=== PATIENT | male | born 1955 | race African-American/Black ===

== ENCOUNTER 2019-06-03 01:19 | Emergency (ER) | payer OTHER, SELFPAY ==
--- NOTE | ~2019-06-03 | CT_ITS ---
EXAMINATION: CT chest wo con DATE: 06/03/2019 03:21 INDICATION: Altered mental status and abnormal chest x-ray TECHNIQUE: Computed tomography (CT) of the chest was performed without intravenous contrast. The dose -length product (DLP) was 159.72 mGy-cm. Automated exposure control and iterative reconstruction tech nique were employed. COMPARISON: None FINDINGS: Severe cardiomegaly is again noted. There are minimal perihilar and bibasilar airspace opac ities. Anasarca is noted. There are small pleural effusions. No pneumothorax is identified. No defini te thoracic lymphadenopathy is identified. There are partially imaged surgical changes in the cervica l spine. There is diffuse sclerosis amongst the visualized osseous structures which could reflect und erlying metabolic abnormality. IMPRESSION: 1. Severe cardiomegaly. 2. Minimal airspace opacities could reflect pulmonary edema versus atelectasis versus pneumonia. Reviewed, dictated and finalized at location A.
--- NOTE | ~2019-06-03 | XR_ITS ---
EXAMINATION: XR chest 2V DATE: 06/03/2019 02:26 INDICATION: Altered mental status TECHNIQUE: AP and lateral views of the chest are obtained. COMPARISON: 02/18/2019 FINDINGS: There is unchanged severe cardiomegaly. There are patchy bilateral airspace opacities. No d efinite pleural effusion or pneumothorax is identified. There is diffuse sclerosis of the vertebral b odies with compression deformities in the midthoracic spine. Advanced osteoarthritis is noted in the right glenohumeral joint. There are partially imaged changes of cervical spinal fusion. IMPRESSION: 1. Stable cardiomegaly. 2. Patchy bilateral airspace opacities, consistent with atelectasis versus pneumonia versus pulmonary edema. Reviewed, dictated and finalized at location A. IMPRESSION: 1. Stable cardiomegaly. 2. Patchy bilateral airspace opacities, consistent with atelectasis versus pneu monia versus pulmonary edema.
--- NOTE | ~2019-06-03 | CT_ITS ---
EXAMINATION: CT brain wo con INDICATION: Altered mental status COMPARISON: None TECHNIQUE: Standard unenhanced head CT. The dose-length product (DLP) was 605.33 mGy-cm. The mA was a djusted according to patient size. Iterative reconstruction technique was employed. FINDINGS: There is no acute intraparenchymal hemorrhage. No evidence of mass lesion. No evidence of a cute infarction. There is mild periventricular and subcortical hypodensity probably related to small vessel ischemic disease. There are prominent calcifications of the bilateral basal ganglia. There is mild prominence of the sulci and ventricles related to cerebral atrophy. Intracranial calcified cereb ral atherosclerosis is noted. There are no extra-axial collections. There is no mass effect or midlin e shift. Changes in the globes are likely from ocular lens surgery. The visualized sinuses and masto id air cells are well aerated. Subtle erosive changes are noted in the tip of the odontoid as well as in the right lateral mass of C1 which could reflect underlying rheumatoid arthritis. Recommend clini anthony correlation. IMPRESSION: 1. No acute intracranial abnormality. 2. Age related findings. Reviewed, dictated and finalized at location A.
--- NOTE | 2019-06-03 01:31 | ED.AMS ---
HPI - Altered Mental Status General Chief Complaint: Altered Mental Status Stated Complaint: ams Time Seen by Provider: 06/03/19 01:30 Source: EMS, RN notes reviewed and old records reviewed Mode of arrival: EMS Limitations: clinical condition History of Present Illness HPI narrative: A 63 y/o male presents to the ED via EMS from his [facility] d/t AMS beginning at roughly 2.5 hours ago. Per EMS, report that the [place] nurses stated that the pt is typically A&Ox3 and is able to remember their names, but that tonight around 11 PM the pt became altered and was unable to remember any of their names. The pt is having difficulty articulating why he is in the ED. He denies any ROGERS, CP, ABD pain, SOB, N/V/D, fevers, chills, or cough. MD complaint: altered mental status Onset (ago): hour(s) (2.5) Time: 23:00 Timing confirmed by: caregiver Associated symptoms: denies other symptoms Related Data Home Medications Medication Instructions Recorded Confirmed [facility] Renal 2 Jasen 0.09 ea PO DAILY 02/19/19 02/19/19 amlodipine 10 mg PO DAILY 02/19/19 02/19/19 ergocalciferol (vitamin D2) 50,000 unit PO WEEKLY 02/19/19 02/19/19 hydrocodone-acetaminophen [Lorcet 1 tablet PO Q6H PRN 02/19/19 02/19/19 (hydrocodone)] sevelamer carbonate 800 mg PO TIDWM 02/19/19 02/19/19 acetaminophen [Tylenol] 650 mg PO ONCE PRN 06/03/19 baclofen 10 mg PO TID 06/03/19 brimonidine 1 drp OPHTHALMIC (EYE) Q8H 06/03/19 cinacalcet 30 mg PO BID 06/03/19 dorzolamide 1 drp OPHTHALMIC (EYE) BID 06/03/19 labetalol 100 mg PO Q12H 06/03/19 timolol 1 drp OPHTHALMIC (EYE) BID 06/03/19 Allergies Allergy/AdvReac Type Severity Reaction Status Date / Time No Known Allergies Allergy Verified 02/18/19 23:43 Review of Systems Review of Systems: All systems reviewed & are unremarkable except as noted in HPI and below Constitutional: Constitutional: Denies chills and Denies fever(s) Cardiovascular: Cardiovascular: Denies chest pain Respiratory: Respiratory: Denies cough and Denies dyspnea Gastrointestinal: Gastrointestinal: Denies abdominal pain, Denies diarrhea, Denies nausea and Denies vomiting Neurologic: Denies headache(s) and Reports other (Altered mental statutes) [facility] Past Medical History Medical History Cataracts, bilateral Cyst on his buttocks Decubitus ulcer of sacral region, stage 1 Dialysis patient Erythropoietin deficiency anemia Essential (primary) hypertension Glaucoma H/O: HTN (hypertension) Hemorrhoids Hypotension Renal insufficiency PETER (renal osteodystrophy) Surgical History Surgical History History of cervical spinal surgery Social History Social History Smoking packs per day: 0.5 Smoking cigarettes per day: 10.0 Years smoked: 50 Smoking pack-years: 25.00 Smoking status: Light tobacco smoker Tobacco type: cigarettes Additional smoking assessment comments: SMOKES MARIJUANA FOR PAIN CONTROL Alcohol intake: never Substance use: current Substance use type: marijuana Gender identity (if verbalized by the patient): Male Spiritual care concerns: No Agree to blood products: Yes Comments Parts Counter Associate: Dr. Alvarado. Exam Const: General: cooperative, no acute distress, alert and ill appearing chronically Nutritional Appearance: thin Orientation/consciousness: oriented to person and oriented to place Limitations: altered mental status HENMT: Mouth: Yes lip normal and Yes moist mucous membranes Resp: Effort & Inspection: normal respiratory effort Auscultation: clear to auscultation bilaterally Cardio: Rate: regular rate Rhythm: regular rhythm Heart sounds: Murmur heart sound present systolic (slight) GI: GI Palp: Yes Soft to palpation and No Tenderness to palpation present (GI) Auscultation: normal bowel sounds Skin: General skin exam: normal color Neuro:
[2019-06-03 01:33] VITALS: BP 168/70; PULSE 63; RESP 14; TEMP 36.6; O2SAT 100
--- NOTE | 2019-06-03 01:38 | ECG_ITS ---
Measurements Intervals [place] Rate: 72 P: 60 TN: 254 QRS: 33 QRSD: 113 T: 169 QT: 487 QTc: 535 Interpretive Statements SINUS RHYTHM WITH FIRST DEGREE AV BLOCK INTRAVENTRICULAR CONDUCTION DELAY ST-T WAVE ABNORMALITY IN ANTEROLAT/LAT LEADS- CONSIDER ISCHEMIA ABNORMAL ECG Electronically Signed On 06-03-2019 7:59:51 CDT by Catrachito Jones D.O.
[2019-06-03 02:33] LABS: Alanine Aminotransferase 14 U/L (4-50); Albumin Level 3.8 g/dL (3.5-5.1); Alkaline Phosphatase 125 U/L (38-126); Aspartate Amino Transferase 22 U/L (17-59); Bilirubin,Total 0.7 mg/dL (0.2-1.3); Blood Urea Nitrogen 45 mg/dL (9-20); Calcium 9.3 mg/dL (8.4-10.2); Carbon Dioxide 27 mmol/L (22-30); Chloride 107 mmol/L (98-107); Estimated CRCL calculation 8 ml/min; Estimated Glomerular Filt Rate 10; Glucose 89 mg/dL (75-110); Potassium 4.3 mmol/L (3.4-5.0); Sodium 141 mmol/L (137-145)
[2019-06-03 02:43] LABS: Basophils Absolute Auto 0.1 K/mm3 (0.0-0.1); Basophils Percent Auto 1.6 % (0.2-1.2); Eosinophils Absolute Auto 0.3 K/mm3 (0-0.3); Eosinophils Percent Auto 4.7 % (0-4.4); Hematocrit 33.4 % (42.0-52.0); Hemoglobin 10.1 g/dL (14.0-18.0); Immature Granulocyte Absolute 0.01 K/mm3 (0.00-0.031); Immature Granulocyte Percent A 0.2 % (0-0.5); Lymphocytes Percent Auto 14.4 % (18.3-44.2); Mean Corpuscular HGB Conc 30.2 g/dl (32-36); Mean Corpuscular Hemoglobin 30.1 pg (26-34); Mean Corpuscular Volume 99.7 fl (80-100); Mean Platelet Volume 9.9 fl (7.4-10.4); Monocytes Absolute Auto 0.5 K/mm3 (0.1-0.6); Monocytes Percent Auto 8.6 % (2.6-8.5); Neutrophils Absolute Auto 3.9 K/mm3 (1.3-6.7); Neutrophils Percent Auto 70.5 % (45.5-73.1); Platelet Count Result 245 k/mm3 (150-375); Red Blood Count 3.35 M/mm3 (4.6-6.20); White Blood Count 5.6 K/mm3 (4.5-10.0)
[2019-06-03 03:28] VITALS: BP 172/79; PULSE 70; RESP 20; O2SAT 97
--- NOTE | 2019-06-03 03:29 | PC.NURSE ---
aware pt states he does not make urine
--- NOTE | 2019-06-03 04:59 | PC.NURSE ---
AWARE PT DOES NOT MAKE URINE
--- NOTE | 2019-06-03 05:01 | PC.NURSE ---
ATTEMPT TO CALL REPORT TO [facility] , NO ONE ANSWERED PHONE ON [address]
[2019-06-03 05:05] VITALS: BP 176/80; PULSE 62; RESP 18; O2SAT 99
--- NOTE | 2019-06-03 05:15 | PC.NURSE ---
ATTEMPT TO CALL REPORT TO [facility]- NO ONE ANSWER THE PHONE
[2019-06-03 05:26] VITALS: BP 176/80; PULSE 67; RESP 21; O2SAT 98
[2019-06-03 05:37] VITALS: TEMP 37.1
== END 2019-06-03 05:39 ==
PROVIDERS: Emergency Provider Emergency Medicine
DX: R40.0 Somnolence (principal); F17.210 Nicotine dependence, cigarettes, uncomplicated; H26.9 Unspecified cataract; Z99.2 Dependence on renal dialysis; N28.9 Disorder of kidney and ureter, unspecified; H40.9 Unspecified glaucoma; I10 Essential (primary) hypertension; I44.0 Atrioventricular block, first degree; I45.9 Conduction disorder, unspecified; R94.31 Abnormal electrocardiogram [ECG] [EKG]; I51.7 Cardiomegaly; R91.8 Other nonspecific abnormal finding of lung field
CPT/HCPCS: 36415; 70450; 71046; 71250; 80053; 85025; 93005; 99284

== ENCOUNTER 2019-07-02 04:00 | Inpatient (IN) | payer OTHER, SELFPAY ==
[2019-07-02] VITALS (15 sets, daily range): BP systolic 80–151; BP diastolic 54–82; PULSE 58–76; RESP 12–27; TEMP 36.6–38.4; O2SAT 3–100
--- NOTE | ~2019-07-02 | XR_ITS ---
EXAMINATION: XR chest 1V portable DATE: 07/04/2019 06:04 INDICATION: Pneumonia with pulmonary infiltrates. TECHNIQUE: frontal view of the chest was obtained. COMPARISON: Chest radiograph dated 07/03/2019 FINDINGS: No interval change accounting for slight leftward rotation of the patient in patchy bilateral airspac e opacities. Tiny left pleural effusion. No pneumothorax. Cardiomegaly. Diffuse sclerosis of the bone s and symmetric erosions of the clavicles, coracoid processes and humeral heads including the subchon dral bone all likely related to renal osteodystrophy. Partially visualized instrumented anterior and posterior spinal fusions of the cervical spine. IMPRESSION: 1. Unchanged bilateral patchy airspace disease which could represent pulmonary edema or pneumonia. 2. Tiny left pleural effusion. 3. Cardiomegaly. Reviewed, dictated and finalized at location A.
--- NOTE | ~2019-07-02 | XR_ITS ---
EXAMINATION: XR chest 1V portable DATE: 07/03/2019 05:56 INDICATION: Pneumonia. TECHNIQUE: A single frontal view of the chest was obtained. COMPARISON: Chest single view 07/02/2019 FINDINGS: There are patchy perihilar airspace opacities bilaterally. No pleural effusion or pneumotho rax. Cardiomegaly is noted. There are changes of anterior fusion procedure in cervical spine and post erior fusion procedure in cervicothoracic spine. IMPRESSION: 1. Worsened airspace opacities in the perihilar regions, consistent with pulmonary edema versus pneum onia. 2. Cardiomegaly. Reviewed, dictated and finalized at location A. IMPRESSION: 1. Worsened airspace opacities in the perihilar regions, consistent with pulmon zenaida edema versus pneumonia. 2. Cardiomegaly.
--- NOTE | ~2019-07-02 | XR_ITS ---
EXAMINATION: XR chest 1V portable INDICATION: Hypoxia TECHNIQUE: Portable AP chest at 0836 hours COMPARISON: 07/04/2019 FINDINGS: Cardiomegaly is noted. There are patchy bilateral airspace opacities which have improved. T here is no pleural effusion or pneumothorax. There are partially imaged surgical changes of the cervi anthony spine. Endovascular stent is noted in the left upper arm. IMPRESSION: 1. Improved diffuse lung disease, consistent with resolving pneumonia. 2. Stable cardiomegaly. Reviewed, dictated and finalized at location A.
--- NOTE | ~2019-07-02 | XR_ITS ---
EXAMINATION: XR chest 1V portable DATE: 07/02/2019 04:42 INDICATION: Cough. TECHNIQUE: A single frontal view of the chest was obtained. COMPARISON: Chest 2 views 06/03/2019, chest CT 06/03/2019 FINDINGS: The patient is rotated to his left. There are patchy airspace opacities in the mid and lowe r lung zones. No pleural effusion or pneumothorax. Cardiomegaly is noted. There are changes of anteri or and posterior fusion procedures in cervical spine. IMPRESSION: 1. Worsened airspace opacities in the mid and lower lung zones, consistent with pulmonary edema versu s pneumonia. 2. Cardiomegaly. Reviewed, dictated and finalized at location A. IMPRESSION: 1. Worsened airspace opacities in the mid and lower lung zones, consistent with pulmonary edema versus pneumonia. 2. Cardiomegaly.
--- NOTE | 2019-07-02 04:02 | ECG_ITS ---
Measurements Intervals [place] Rate: 73 P: 73 VT: 186 QRS: 97 QRSD: 113 T: -38 QT: 439 QTc: 486 Interpretive Statements SINUS RHYTHM INTRAVENTRICULAR CONDUCTION DELAY BORDERLINE ST-T WAVE ABNORMALITY- INF/LAT LEADS BORDERLINE ECG Electronically Signed On 07-02-2019 8:07:01 CDT by Catrachito Jones D.O.
--- NOTE | 2019-07-02 04:13 | ED.SOB ---
HPI - SOB/Dyspnea General Chief Complaint: Shortness of Breath/Dyspnea Stated Complaint: SOB/ Fever/ cough Source: RN notes reviewed History of Present Illness HPI Narrative: [facility]. Patient states that he has been feeling intermittently short of breath over the past week and symptoms worsened yesterday. States has been having a cough that is been nonproductive patient is also had a fever up to 102 at the [facility]. Per the F the patient is been having episodes of hypoxia and has been requiring oxygen at the facility wearing up to 3 L. There are several cases of positive Covid at the [facility] patient states at baseline he does not walk he is currently on dialysis on Tuesdays and Saturdays with last dialysis yesterday and Dr. Alvarado is his manager molecular Related Data Home Medications Medication Instructions Recorded Confirmed [facility] Renal 2 Jasen 0.09 ea PO DAILY 02/19/19 02/19/19 amlodipine 10 mg PO DAILY 02/19/19 02/19/19 ergocalciferol (vitamin D2) 50,000 unit PO WEEKLY 02/19/19 02/19/19 sevelamer carbonate 800 mg PO TIDWM 02/19/19 02/19/19 acetaminophen [Tylenol] 650 mg PO ONCE PRN 06/03/19 baclofen 10 mg PO TID 06/03/19 brimonidine 1 drp OPHTHALMIC (EYE) Q8H 06/03/19 cinacalcet 30 mg PO BID 06/03/19 dorzolamide 1 drp OPHTHALMIC (EYE) BID 06/03/19 labetalol 100 mg PO Q12H 06/03/19 timolol 1 drp OPHTHALMIC (EYE) BID 06/03/19 hydrocodone-acetaminophen 1 tablet PO Q6-8H 07/02/19 sennosides-docusate sodium [Senna 1 tab-cap PO DAILY 07/02/19 Plus] Allergies Allergy/AdvReac Type Severity Reaction Status Date / Time No Known Allergies Allergy Verified 07/02/19 04:13 Review of Systems Review of Systems: Narrative: Gen.: Reports fever denies chills Eyes: Denies eye pain or visual change ENT: Denies congestion Respiratory: See HPI CV: Denies chest pain or palpitations GI: Denies abdominal pain nausea, emesis or diarrhea chronic renal failure dialysis Saturdays Musculoskeletal: Denies back pain or muscle pain Neuro: Denies numbness, tingling, weakness or focal weakness Skin: Denies rash Except as documented, all other systems reviewed and negative [facility] Past Medical History Medical History Cataracts, bilateral Cyst on his buttocks Decubitus ulcer of sacral region, stage 1 Dialysis patient Erythropoietin deficiency anemia Essential (primary) hypertension Glaucoma H/O: HTN (hypertension) Hemorrhoids Hypotension Renal insufficiency PETER (renal osteodystrophy) Social History Social History Smoking packs per day: 0.5 Smoking cigarettes per day: 10.0 Years smoked: 50 Smoking pack-years: 25.00 Smoking status: Light tobacco smoker Tobacco type: cigarettes Additional smoking assessment comments: SMOKES MARIJUANA FOR PAIN CONTROL Alcohol intake: never Substance use: current Substance use type: marijuana Gender identity (if verbalized by the patient): Male Spiritual care concerns: No Agree to blood products: Yes Exam Narrative: Exam Narrative: APPEARANCE: No acute distress, nontoxic, resting in bed EYES: EOMI HEENT: Normocephalic, atraumatic, OMM RESPIRATORY: No respiratory distress coarse breath sounds throughout the bilateral lung walters, no wheezing CARDIOVASCULAR: Regular rate and rhythm without murmurs rubs or gallops. ABDOMINAL: Soft, nontender, nondistended, no rebound or guarding MUSCULOSKELETAl: No clubbing, cyanosis or edema. NEURO: Awake and alert x 3. Following commands, speech normal, no focal deficits SKIN:: Warm, dry. No rashes lesions or abrasions PSYCHIATRIC: Normal affect/mood, Course Course Emergency Course: Reviewed old records. Patient with chronically elevated troponin. Discussed with Dr. Anne presentation work-up. Agrees with admission at this time to IMU
[2019-07-02 04:37] LABS: Basophils Percent Auto 0.2 % (0.2-1.2); Hematocrit 31.9 % (42.0-52.0); Hemoglobin 10.2 g/dL (14.0-18.0); Immature Granulocyte Absolute 0.03 K/mm3 (0.00-0.031); Immature Granulocyte Percent A 0.7 % (0-0.5); Lymphocytes Absolute Auto 0.53 K/mm3 (0.9-3.2); Lymphocytes Percent Auto 13.2 % (18.3-44.2); Mean Corpuscular Hemoglobin 31.1 pg (26-34); Mean Corpuscular Volume 97.3 fl (80-100); Mean Platelet Volume 10.9 fl (7.4-10.4); Monocytes Absolute Auto 0.2 K/mm3 (0.1-0.6); Neutrophils Absolute Auto 3.3 K/mm3 (1.3-6.7); Neutrophils Percent Auto 80.9 % (45.5-73.1); Nucleated Red Blood Cells Perc 0.5 % (0.0-0.2); Platelet Count Result 182 k/mm3 (150-375); Red Blood Count 3.28 M/mm3 (4.6-6.20); Red Cell Distribution Width 14.8 % (11.5-14.5)
[2019-07-02 04:53] LABS: INR 1.4; Lactic Acid Reflex 1.5 mmol/L (0.7-2.1); Prothrombin Time 16.7 Seconds (11.1-14.7)
[2019-07-02 04:59] LABS: Alanine Aminotransferase 10 U/L (4-50); Albumin Level 3.8 g/dL (3.5-5.1); Alkaline Phosphatase 112 U/L (38-126); Aspartate Amino Transferase 26 U/L (17-59); Bilirubin,Total 0.8 mg/dL (0.2-1.3); Blood Urea Nitrogen 31 mg/dL (9-20); Calcium 8.8 mg/dL (8.4-10.2); Carbon Dioxide 20 mmol/L (22-30); Chloride 103 mmol/L (98-107); Estimated Glomerular Filt Rate 14; Glucose 86 mg/dL (75-110); Potassium 4.9 mmol/L (3.4-5.0); Sodium 137 mmol/L (137-145)
[2019-07-02 05:23] LABS: Troponin I 0.211 ng/mL (0.000-0.034)
--- NOTE | 2019-07-02 05:24 | PC.NURSE ---
Patient was swabbed for COVID19. The swab was sent to lab.
[2019-07-02] MEDS: ASPIRIN 81 MG CHEWABLE TABLET 324 MG PO (05:51)
[2019-07-02] MEDS: ACETAMINOPHEN 500 MG TABLET 1000 MG PO (06:31)
--- NOTE | 2019-07-02 08:18 | ADMGEN ---
This patient, Starr Ramon, was admitted to IMU Room 211-01. Patient/family oriented to hospital policies and general routines including ID bracelet, bed and alarms, visiting hours, pain management, procedures, bathroom and other care routines, personal items, smoking policy, room service/diet, and visiting hours. Valuables list has been completed. Information on how to activate the Rapid Response Team has been discussed. Patient/Family are encouraged to report perceived risks to care and to ask questions if they do not understand what they are told or what they should do.
[2019-07-02 09:58] LABS: Troponin I 0.207 ng/mL (0.000-0.034)
--- NOTE | 2019-07-02 10:44 | PM.IMHP ---
H&P: HPI History of Present Illness Chief complaint: COMMUNITY-ACQUIRED PNEUMONIA RULE OUT YOHANA COKER Narrative: Date of visit 07/01. Starr Ramon is a 63 year old hypertensive black male on chronic hemodialysis who presented to the ER from local senior care with week history shortness of breath, fever, and cough that is sometimes productive. Chest x-ray was not that remarkable but CT scan did show some infiltrates and due to the fact that his facility has had positive COVID patient and his underlying comorbid problems he was admitted for evaluation treatment of the same. Had elevated troponin as he had during his last admission but denied any chest pain this time. Was admitted in March 09 for chest discomfort and elevated troponin was thought to be secondary to renal failure. Echo at that time showed normal ejection fraction with mild stenosis mild mitral regurg and no wall motion abnormalities but grade 1 diastolic dysfunction. 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 Mouth no pharyngitis laryngitis Pulmonary as per present illness some wheezing shortness of breath CV no chest pain or palpitation with present illness GI no melena hematochezia diarrhea does not urinate with his chronic renal failure and hemodialysis Muscle skeletal does not walk for a few years due to cervical disc disease Integument has had sacral pressure sore Neuro as above not really ambulatory Psych affect appropriate cooperative PMFSH Past Medical History Medical History (Updated 07/02/19 @ 11:06 by Adair Yates MD) Cataracts, bilateral Cyst on his buttocks Decubitus ulcer of sacral region, stage 1 Dialysis patient Erythropoietin deficiency anemia Essential (primary) hypertension Glaucoma H/O: HTN (hypertension) Hemorrhoids Hypotension Presence of arterial-venous shunt (for dialysis) Renal insufficiency PETER (renal osteodystrophy) Surgical History Surgical History (Updated 07/02/19 @ 10:53 by Adair Yates MD) History of cervical spinal surgery 2011 while living in [place]. Has not ambulated for approximately 4 years Family History Family History (Updated 07/02/19 @ 10:57 by Adair Yates MD) Sibling Colon cancer Throat cancer Father , Age 60 Cerebrovascular accident Mother , Murdered at age 45 No problems noted. 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 Smoking packs per day: 0.5 Smoking cigarettes per day: 10.0 Years smoked: 50 Smoking pack-years: 25.00 Smoking status: Current every day smoker Tobacco type: cigarettes Additional smoking assessment comments: SMOKES MARIJUANA FOR PAIN CONTROL Alcohol intake: never Substance use: unknown Substance use type: marijuana Gender identity (if verbalized by the patient): Male Spiritual care concerns: No Agree to blood products: Yes Meds Home Medications and Allergies Home Medications Medication Instructions Recorded Confirmed Type amlodipine 10 mg PO DAILY 02/19/19 07/02/19 History sevelamer carbonate 800 mg PO TIDWM 02/19/19 07/02/19 History foam bandage [Mepilex Border] #30 ea 02/21/19 07/02/19 Rx polyethylene glycol 3350 [Miralax] 17 g PO QAM #30 ea 02/21/19 07/02/19 Rx kevin warren [Preparation H (Witch 1 pad TOPICAL PRN PRN #10 ea 02/21/19 07/02/19 Rx Warren)] baclofen 10 mg PO TID PRN 06/03/19 07/02/19 History brimonidine 1 drp OPHTHALMIC (EYE) Q12H 06/02/20 07/02/19 History dorzolamide 1 drp OPHTHALMIC (EYE) Q12H 06/02/20 07/02/19 History labetalol 100 mg PO Q12H 03
[2019-07-02] MEDS: DORZOLAMIDE HCL 2% OPHTH DROPS 1 DROP EACH EYE ×2 (11:53→20:03)
[2019-07-02] MEDS: BRIMONIDINE TARTRATE 0.2% OP SOLN 5 ML BTL 1 DROP EACH EYE ×2 (11:53→20:03)
[2019-07-02] MEDS: SODIUM CHLORIDE 0.9% IV 500 ML IV CONT (11:54)
[2019-07-02] MEDS: SEVELAMER CARBONATE 800 MG TABLET PO ×2 (11:54→18:25)
[2019-07-02] MEDS: DOXYCYCLINE HYCLATE 100 MG TABLET PO ×2 (11:54→20:03)
[2019-07-02] MEDS: HEPARIN SODIUM 5,000 UNITS/ML VIAL 5000 UNITS SUB-Q ×2 (11:56→20:03)
[2019-07-02 13:06] LABS: CRP 2.2 mg/dL (<1.0); Lactate Dehydrogenase 409 U/L (313-618)
[2019-07-02 13:17] LABS: Troponin I 0.216 ng/mL (0.000-0.034)
[2019-07-02 15:06] LABS: Ferritin > 2000.00 ng/mL (11.1-264)
[2019-07-02] MEDS: ALBUTEROL SULFATE (*SP) AEROSOL 1 PUFF 2 PUFF INHALATION (19:36)
[2019-07-03] VITALS (20 sets, daily range): BP systolic 129–144; BP diastolic 66–79; PULSE 61–78; RESP 12–24; TEMP 35.9–36.7; O2SAT 93–100
--- NOTE | 2019-07-03 01:52 | PM.EVENT ---
Event Note Event Note Event Note: Rapid Response Note This is a 63 year old dialysis patient who is being treated for pneumonia and possible COVID-19 viral infection who tonight suddenly was very short of breath. Nursing staff called a Rapid Response and placed the patient on 6L of oxygen via [place]. On my arrival to bedside the patient is comfortable and in no acute distress. Currently he denies any shortness of breath. RT will obtain ABg and we will consider high flow oxygen. We will continue to monitor closely and consider endotracheal intubation and mechanical ventilation if necessary.
[2019-07-03 02:17] LABS: Alveolar/Arterial O2 Gradient 212.9 mmHg; Base Excess ABG -6.4 mEq/l (+/-2.0); Carboxyhemoglobin 0.3 % THb (0-2.0); Fractional Inspired Oxygen 44 %; HCO3 ABG 18.9 mEq/l (22.0-26.0); Methemoglobin ABG 0.3 %THb (0-1.5); Oxygen Saturation ABG 88.9 % (95.0-100.0); Oxyhemoglobin 83.3 % THb (90.0-100.0); PCO2 ABG 36.8 mmHg (35.0-45.0); PO2 ABG 58.9 mmHg (80.0-100.0); PO2 FiO2 Ratio Arterial Blood 1.34 %; Reduced Hemoglobin 16.1 %THb (0-5.0); Site Drawn RIGHT RADIAL; Total Hemoglobin 11.1 g/dL (12.0-18.0); pH ABG 7.328 (7.350-7.450)
[2019-07-03 02:18] LABS: Device NASAL CANNULA; Modified Allen's Test Pass
[2019-07-03 04:19] LABS: Basophils Percent Auto 0.2 % (0.2-1.2); Hematocrit 34.8 % (42.0-52.0); Hemoglobin 10.7 g/dL (14.0-18.0); Immature Granulocyte Absolute 0.02 K/mm3 (0.00-0.031); Immature Granulocyte Percent A 0.3 % (0-0.5); Lymphocytes Absolute Auto 0.56 K/mm3 (0.9-3.2); Lymphocytes Percent Auto 9.4 % (18.3-44.2); Mean Corpuscular HGB Conc 30.7 g/dl (32-36); Mean Corpuscular Hemoglobin 30.5 pg (26-34); Mean Corpuscular Volume 99.1 fl (80-100); Mean Platelet Volume 11.2 fl (7.4-10.4); Monocytes Absolute Auto 0.2 K/mm3 (0.1-0.6); Monocytes Percent Auto 2.9 % (2.6-8.5); Neutrophils Absolute Auto 5.2 K/mm3 (1.3-6.7); Neutrophils Percent Auto 87.2 % (45.5-73.1); Nucleated Red Blood Cells Perc 0.5 % (0.0-0.2); Platelet Count Result 197 k/mm3 (150-375); Red Blood Count 3.51 M/mm3 (4.6-6.20); Red Cell Distribution Width 15.1 % (11.5-14.5); White Blood Count 5.9 K/mm3 (4.5-10.0)
[2019-07-03] MEDS: HEPARIN SODIUM 5,000 UNITS/ML VIAL 5000 UNITS SUB-Q ×3 (05:23→20:29)
[2019-07-03 07:10] LABS: Ferritin > 2000.00 ng/mL (11.1-264)
[2019-07-03] MEDS: ALBUTEROL SULFATE (*SP) AEROSOL 1 PUFF 2 PUFF INHALATION ×4 (08:49→19:59)
[2019-07-03] MEDS: SENNA/DOCUSATE SODIUM TABLET 1 TAB PO (09:24)
[2019-07-03] MEDS: SEVELAMER CARBONATE 800 MG TABLET PO ×3 (09:24→17:04)
[2019-07-03] MEDS: BRIMONIDINE TARTRATE 0.2% OP SOLN 5 ML BTL 1 DROP EACH EYE ×2 (09:24→20:29)
[2019-07-03] MEDS: TIMOLOL MALEATE 0.5% OP SOLN 5 ML BTL 1 DROP EACH EYE ×2 (09:24→20:29)
[2019-07-03] MEDS: DORZOLAMIDE HCL 2% OPHTH DROPS 1 DROP EACH EYE ×2 (09:24→20:29)
[2019-07-03] MEDS: DOXYCYCLINE HYCLATE 100 MG TABLET PO ×2 (09:24→20:29)
[2019-07-03] MEDS: BACLOFEN 10 MG TABLET PO (09:24)
[2019-07-03] MEDS: polyethylene glycoL 3350 17 GM POWD.PACK PO (09:26)
[2019-07-03 09:50] LABS: Blood Urea Nitrogen 49 mg/dL (9-20); CRP 2.6 mg/dL (<1.0); Calcium 7.1 mg/dL (8.4-10.2); Carbon Dioxide 16 mmol/L (22-30); Chloride 106 mmol/L (98-107); Estimated Glomerular Filt Rate 12; Glucose 51 mg/dL (75-110); Lactate Dehydrogenase 560 U/L (313-618); Potassium 5.6 mmol/L (3.4-5.0); Sodium 135 mmol/L (137-145)
[2019-07-03 11:59] LABS: Glucose Point of Care 45 (65-105)
[2019-07-03] MEDS: DEXTROSE 50% 25 GM/50 ML SYRINGE IV PUSH ×2 (12:24→20:51)
[2019-07-03 12:51] LABS: Glucose Point of Care 52 (65-105)
[2019-07-03 12:51] LABS: Glucose Point of Care 166 (65-105)
--- NOTE | 2019-07-03 15:09 | PM.CNNEP ---
Assessment and Plan Assessment and plan (1) End stage renal disease: Code(s): N18.6 - End stage renal disease Status: Acute (2) Community acquired pneumonia: Code(s): J18.9 - Pneumonia, unspecified organism Status: Acute (3) Essential (primary) hypertension: Code(s): I10 - Essential (primary) hypertension Status: Acute (4) Exposure to COVID-19 virus: Code(s): Z20.828 - Contact with and (suspected) exposure to other viral communicable diseases Status: Acute Assessment and Plan: . Additional Plan Starr has end-stage renal disease. He is due for dialysis tomorrow and I will ensure this occurs and maintain his Wednesday dialysis schedule while he remains hospitalized. I will continue ongoing efforts to maintain stability in his electrolytes, volume status, and clearance. The patient also has pneumonia and is currently on broad-spectrum IV antibiotic therapy for treatment of this issue. His blood cultures so far have been negative we will continue current therapy to ensure he continues to make improvement from this acute infection. The patient has also potential exposure to COVID-19 and specific testing has been ordered to delineate whether not he is positive for this infection. He remains on respiratory isolation until these tests come back. I will continue follow the patient in effort to maintain stability in his CKD parameters and make adjustments to his medications as well as his dialysis prescription as deemed necessary. I will continue follow patient with you while he remains hospitalized and make further recommendations during his hospital course. Thank you for allowing me to participate in the care of this patient. History of Present Illness Reason for Consult Consult date: 07/03/19 Reason for consult: end stage renal disease Chief Complaint Chief complaint: COMMUNITY-ACQUIRED PNEUMONIA RULE OUT COVID, ELEVA History of Present Illness Narrative: The patient is a 63 year old male with a past medical history as outlined below who presented to [facility] ER from his nursing facility with shortness of breath. The patient states that he has been feeling intermittently short of breath over the past week and symptoms worsened the day before admission. Associated symptoms include a cough that is been productive at times as well as a fever up to 102 degrees. Nursing notes from the nursing facility also report episodes of hypoxia with the patient requiring oxygen of up to 3L. More concerning is the fact that there are several cases/residents who have tested positive for COVID-19 at the nursing facility as well. Hence, he was transferred to the ER for further evaluation. Work-up and evaluation in the emergency room demonstrated the patient to be hemodynamically stable with no evidence of fever. Routine blood test demonstrated labs consistent with his known history of end-stage renal disease as well. A chest x-ray was suggestive of a right middle lobe infiltrate. Rapid influenza screen was negative. Given the patient's complex medical history coupled with a constellation of symptoms that led to his presentation to the ER as well as imaging studies in the history of COVID-19 exposure, appropriate cultures were obtained, he was started on broad-spectrum IV antibiotic therapy, and he was admitted the hospital for further evaluation and therapy. Renal consultation was requested due to his end-stage renal disease. The patient currently dialyzes at [facility] on a Wednesday, , Wednesday schedule under the care of Dr. Alvarado. I believe he was originally being dialyzed at a different dialysis center but given his potential exposure to COVID-19, he was transferred via [place] on the aforementioned Wednesday, , Wednesday shift per dialysis protocol to reduce the risk of exposing other dialysis patients to this potential infecti
--- NOTE | 2019-07-03 15:27 | PM.IMPN ---
Progress Note: A&P Assessment and Plan (1) Community acquired pneumonia: Code(s): J18.9 - Pneumonia, unspecified organism Status: Acute Assessment and Plan: Community-acquired pneumonia. He has been cultured and placed on ceftriaxone and doxycycline. He had 1 dose of azithromycin in ER. He does not urinate so we cannot get urinary antigens. There has been potential exposure to COVID so swab has been obtained and inflammatory markers ordered. (2) Elevated troponin: Code(s): R79.89 - Other specified abnormal findings of blood chemistry Status: Acute Assessment and Plan: Patient was hospitalized in March 09 with chest pain and slightly elevated troponin. At that time troponin was thought to be secondary to renal failure. Troponin now slightly higher than before but flat and probably secondary to infectious process. EKG is unchanged and echo last visit showed normal ejection fraction with no wall motion abnormalities. Did have LVH with diastolic grade 1 dysfunction (3) Essential (primary) hypertension: Code(s): I10 - Essential (primary) hypertension Status: Acute Assessment and Plan: Pressure presently low and had dialysis yesterday so gave a fluid bolus initiallt and held amlodipine and labetalol i (4) ESRD (end stage renal disease) on dialysis: Code(s): N18.6 - End stage renal disease; Z99.2 - Dependence on renal dialysis Status: Acute Assessment and Plan: Dialysis Wednesday and contacted Nephrology for continued treatment (5) Decubitus ulcer of sacral region, stage 1: Code(s): L89.151 - Pressure ulcer of sacral region, stage 1 Status: Acute Assessment and Plan: Wound care to see again (6) DVT prophylaxis: Code(s): Z29.9 - Encounter for prophylactic measures, unspecified Status: Acute Assessment and Plan: Will be subcu heparin with his renal failure Subjective Date/time seen: 07/03/19 15:27 Interval history: Date of visit 07/02. 63-year-old black hypertensive male on chronic hemodialysis admitted with fever some shortness of breath and cough over last week. Chest x-ray some bilateral infiltrates but no hypoxia. Patient covered with broad-spectrum antibiotics, cultured awaiting results of further cultures and COVID Exam Narrative: Exam Narrative: Blood pressure 138/70 pulse is pulse 70 regular respirations 20 per minute on labored saturating 97% on room febrile last 24 hours Pupils are equal reactive sclera anicteric Neck supple no adenopathy thyromegaly or carotid bruits Lungs some basilar crackles primarily left but wheezing has subsided CV regular rate rhythm faint systolic murmur Abdomen soft nontender no masses Extremities without edema dorsalis pedis posterior tibial 1+ Moves all extremities well 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 cranial nerves 2-12 are intact with no obvious focal deficit but no detailed exam of lower extremities Objective Data Vital Signs Vital Signs: Vital Signs - 24 hr 07/02/19 16:00 07/02/19 18:00 07/02/19 19:36 Temperature 36.6 C Pulse Rate 63 58 L 76 Respiratory Rate 12 20 Blood Pressure 113/61 Pulse Oximetry 95 07/02/19 20:00 07/02/19 22:00 07/03/19 00:00 Temperature 36.6 C 36.7 C Pulse Rate 59 L 66 65 Respiratory Rate 14 14 Blood Pressure 108/64 131/77 Pulse Oximetry 98 95 07/03/19 01:56 07/03/19 02:00 07/03/19 02:34 Temperature 36.7 C 36.7 C Pulse Rate 65 65 65 Respiratory Rate 14 14 Blood Pressure 131/77 131/77 Pulse Oximetry 95 95 07/03/19 04:00 07/03/19 06:00 07/03/19 08:00 Temperature 36.6 C Pulse Rate 67 73 78 Respiratory Rate 12 Blood Pressure 129/77 Pulse Oximetry 100 07/03/19 09:03 07/03/19 10:00 07/03/19 12:00 Temperature 36.1 C L Pulse Rate 73 72 67 Respiratory Rate 20 Blood Pressure 144/79 H Pulse Oximetry 93 07/03/19 12:02 07/03/19 14:00 Temperature 35.9 C L Pulse Rate 70 65 Respiratory
[2019-07-03 17:07] LABS: Glucose Point of Care 82 (65-105)
[2019-07-03] MEDS: GLUCOSE ORAL GEL 15 GM OF GLUCSE IN 37.5 GM TUBE PO (20:32)
[2019-07-03 21:15] LABS: Glucose Point of Care 63 (65-105)
[2019-07-03 21:15] LABS: Glucose Point of Care 70 (65-105)
[2019-07-03 21:15] LABS: Glucose Point of Care 148 (65-105)
[2019-07-03 23:45] LABS: Glucose Point of Care 114 (65-105)
[2019-07-04] VITALS (29 sets, daily range): BP systolic 119–165; BP diastolic 60–87; PULSE 59–88; RESP 18–28; TEMP 36.2–37.5; O2SAT 84–100
[2019-07-04] MEDS: HEPARIN SODIUM 5,000 UNITS/ML VIAL 5000 UNITS SUB-Q ×3 (04:46→20:24)
[2019-07-04 05:10] LABS: Basophils Percent Auto 0.2 % (0.2-1.2); Hematocrit 34.2 % (42.0-52.0); Hemoglobin 11.3 g/dL (14.0-18.0); Immature Granulocyte Absolute 0.02 K/mm3 (0.00-0.031); Immature Granulocyte Percent A 0.5 % (0-0.5); Lymphocytes Absolute Auto 1.01 K/mm3 (0.9-3.2); Lymphocytes Percent Auto 23.7 % (18.3-44.2); Mean Corpuscular Volume 93.7 fl (80-100); Mean Platelet Volume 10.4 fl (7.4-10.4); Monocytes Absolute Auto 0.3 K/mm3 (0.1-0.6); Monocytes Percent Auto 5.9 % (2.6-8.5); Neutrophils Percent Auto 69.7 % (45.5-73.1); Nucleated Red Blood Cells Absolute Auto 0.1 K/mm3 (0.0-0.012); Nucleated Red Blood Cells Perc 2.1 % (0.0-0.2); Platelet Count Result 222 k/mm3 (150-375); Red Blood Count 3.65 M/mm3 (4.6-6.20); Red Cell Distribution Width 14.6 % (11.5-14.5); White Blood Count 4.3 K/mm3 (4.5-10.0)
[2019-07-04 05:53] LABS: Blood Urea Nitrogen 68 mg/dL (9-20); CRP 2.9 mg/dL (<1.0); Carbon Dioxide 17 mmol/L (22-30); Chloride 100 mmol/L (98-107); Estimated Glomerular Filt Rate 9; Glucose 95 mg/dL (75-110); Lactate Dehydrogenase 845 U/L (313-618); Potassium 6.3 mmol/L (3.4-5.0); Sodium 134 mmol/L (137-145)
[2019-07-04] MEDS: SENNA/DOCUSATE SODIUM TABLET 1 TAB PO (08:09)
[2019-07-04] MEDS: BRIMONIDINE TARTRATE 0.2% OP SOLN 5 ML BTL 1 DROP EACH EYE ×2 (08:09→20:23)
[2019-07-04] MEDS: TIMOLOL MALEATE 0.5% OP SOLN 5 ML BTL 1 DROP EACH EYE ×2 (08:09→20:23)
[2019-07-04] MEDS: polyethylene glycoL 3350 17 GM POWD.PACK PO (08:09)
[2019-07-04] MEDS: SEVELAMER CARBONATE 800 MG TABLET PO ×2 (08:09→16:00)
[2019-07-04] MEDS: DORZOLAMIDE HCL 2% OPHTH DROPS 1 DROP EACH EYE ×2 (08:10→20:23)
[2019-07-04] MEDS: DOXYCYCLINE HYCLATE 100 MG TABLET PO ×2 (08:10→20:24)
[2019-07-04] MEDS: DEXTROSE 50% 25 GM/50 ML SYRINGE IV PUSH ×2 (08:12→15:10)
[2019-07-04 08:48] LABS: Glucose Point of Care 74 (65-105)
[2019-07-04] MEDS: ALBUTEROL SULFATE (*SP) AEROSOL 1 PUFF 2 PUFF INHALATION ×3 (09:43→20:26)
--- NOTE | 2019-07-04 10:21 | PM.PNNEP ---
Progress Note: A&P Assessment and Plan (1) End stage renal disease: Code(s): N18.6 - End stage renal disease Status: Acute Assessment and Plan: HD today and continue T/T/S schedule while hospitalized continue efforts to optimize electrolytes, volume status, and clearance as tolerated (2) Community acquired pneumonia: Code(s): J18.9 - Pneumonia, unspecified organism Status: Acute Assessment and Plan: as evidenced by admission CXR follow cultures as well as COVID-19 testing follow respiratory status (3) Essential (primary) hypertension: Code(s): I10 - Essential (primary) hypertension Status: Acute Assessment and Plan: reasonable control at this time follow trend of hemodynamics (4) Exposure to COVID-19 virus: Code(s): Z20.828 - Contact with and (suspected) exposure to other viral communicable diseases Status: Acute Assessment and Plan: follow testing ordered remains on isolation Will continue to follow. Subjective Date/time seen: 07/04/19 10:21 Elevated K+ by AM labs and seems a bit more short of breath at the time of my visit; being set up for dialysis in his room; no issues overnight. Exam Narrative: Exam Narrative: General: WD/WN male/female in NAD Heart: normal S1 and S2; no rub Lungs: left basilar crackles noted Abdomen: soft, nontender, nondistended, positive bowel sounds Extremities: no cyanosis or clubbing; no edema Skin: warm and intact Objective Data Vital Signs Vital Signs: Vital Signs Temp Pulse Resp BP Pulse Ox 07/04/19 10:00 65 07/04/19 08:00 36.2 C L 68 20 140/74 97 07/04/19 06:00 65 07/04/19 04:00 36.3 C L 62 21 H 119/62 100 07/04/19 02:00 62 07/04/19 00:00 36.4 C L 59 L 18 120/61 100 07/03/19 23:25 100 07/03/19 21:58 63 07/03/19 20:05 69 24 H 97 07/03/19 20:00 36.3 C L 66 20 134/69 93 07/03/19 18:00 62 07/03/19 17:09 36.1 C L 65 22 H 133/66 95 07/03/19 16:00 61 07/03/19 15:33 93 04/13/20 14:00 65 07/03/19 12:02 35.9 C L 70 20 138/70 97 07/03/19 12:00 67 Intake/Output Intake/Output: Intake & Output 07/01/19 07/02/19 07/03/19 07/04/19 23:59 23:59 23:59 23:59 Intake Total 1520 450 300 Output Total 0 0 Balance 1520 450 300 Meds/Results Medications: Active Medications Generic Name Dose Route Start Last Admin Trade Name Freq PRN Reason Stop Dose Admin Acetaminophen 650 mg 07/02/19 11:08 Tylenol Tablet PO Q6H PRN Mild Pain (1-3) or Fever Hydrocodone Bitart/Acetaminophen 1 tab 07/02/19 10:05 07/03/19 20:29 [place] 10-325 Mg PO 1 tab Q6-8H PRN Administration PAIN 4-6 Albuterol 2 puff 07/02/19 16:00 07/04/19 09:43 Proventil Hfa INHALATION 2 puff QIDRT JENN Administration Baclofen 10 mg 07/02/19 10:05 07/03/19 09:24 Lioresal Po PO 10 mg TID PRN Administration MUSCLE SPASM/PAIN 1-3 Brimonidine Tartrate 1 drop 07/02/19 10:05 07/04/19 08:09 Alphagan 0.2% Op Soln EACH EYE 1 drop Q12HR JENN Administration Dextrose 12.5 gm 07/03/19 11:48 07/04/19 08:12 Dextrose 50% Syringe IV PUSH 12.5 gm PRN PRN Administration Hypoglycemia Protocol Dorzolamide HCl 1 drop 07/02/19 10:05 07/04/19 08:10 Trusopt EACH EYE 1 drop Q12HR JENN Administration Doxycycline Hyclate 100 mg 07/02/19 09:00 07/04/19 08:10 Vibramycin Tab PO 100 mg Q12HR JENN Administration Epoetin Waqas 5,000 units 07/04/19 19:00 Epogen IV PUSH 07/04/19 19:01 ONCE ONE Glucagon 1 mg 07/03/19 11:48 Glucagon For Inj IM PRN PRN Hypoglycemia Protocol Glucose 15 gm 07/03/19 11:48 07/03/19 20:32 Glutose 15 PO 15 gm PRN PRN Administration Hypoglycemia Protocol Heparin Sodium (Porcine) 5,000 units 07/02/19 14:00 07/04/19 04:46 Heparin Sodium SUB-Q 5,000 units Q
[2019-07-04 15:19] LABS: Glucose Point of Care 70 (65-105)
[2019-07-04 15:31] LABS: SARS-CoV-2 RNA PCR Positive
[2019-07-04] MEDS: EPOETIN ALFA 10,000 UNITS/ML VIAL 5000 UNITS IV PUSH (15:54)
--- NOTE | 2019-07-04 16:00 | PC.NURSE ---
This patient, Starr Ramon, was transferred to [ [id number]] on 07/04/19 at 1658. Personal belongings sent with patient. Belongings list checked and signed with receiving [ ]. Report given to [NABEEL Becerra @ [id number]]. Appropriate documentation sent with patient.
--- NOTE | 2019-07-04 16:43 | PM.IMPN ---
Progress Note: A&P Assessment and Plan (1) Community acquired pneumonia: Code(s): J18.9 - Pneumonia, unspecified organism Status: Acute Assessment and Plan: Community-acquired pneumonia. He has been cultured and placed on ceftriaxone and doxycycline. He had 1 dose of azithromycin in ER. He does not urinate so we cannot get urinary antigens. There has been potential exposure to COVID so swab has been obtained and inflammatory markers ordered. Date of visit 07/03. 63-year-old black hypertensive male on chronic hemodialysis admitted with fever some shortness of breath and cough over last week. Chest x-ray some bilateral infiltrates but no hypoxia. Patient covered with broad-spectrum antibiotics, cultured awaiting results of further cultures and COVID, today patient COVID came positive, still short of breath however he is satting 95% on room air, currently is not coughing, denies any fever or chills (2) Elevated troponin: Code(s): R79.89 - Other specified abnormal findings of blood chemistry Status: Acute Assessment and Plan: Patient was hospitalized in March 09 with chest pain and slightly elevated troponin. At that time troponin was thought to be secondary to renal failure. Troponin now slightly higher than before but flat and probably secondary to infectious process. EKG is unchanged and echo last visit showed normal ejection fraction with no wall motion abnormalities. Did have LVH with diastolic grade 1 dysfunction (3) Essential (primary) hypertension: Code(s): I10 - Essential (primary) hypertension Status: Acute Assessment and Plan: Pressure presently low and had dialysis yesterday so gave a fluid bolus initiallt and held amlodipine and labetalol i (4) ESRD (end stage renal disease) on dialysis: Code(s): N18.6 - End stage renal disease; Z99.2 - Dependence on renal dialysis Status: Acute Assessment and Plan: Dialysis Wednesday and contacted Nephrology for continued treatment (5) Decubitus ulcer of sacral region, stage 1: Code(s): L89.151 - Pressure ulcer of sacral region, stage 1 Status: Acute Assessment and Plan: Wound care to see again (6) DVT prophylaxis: Code(s): Z29.9 - Encounter for prophylactic measures, unspecified Status: Acute Assessment and Plan: Will be subcu heparin with his renal failure Subjective Date/time seen: 07/04/19 16:43 Interval history: Date of visit 07/03. 63-year-old black hypertensive male on chronic hemodialysis admitted with fever some shortness of breath and cough over last week. Chest x-ray some bilateral infiltrates but no hypoxia. Patient covered with broad-spectrum antibiotics, cultured awaiting results of further cultures and COVID, today patient COVID came positive, still short of breath however he is satting 95% on room air, currently is not coughing, denies any fever or chills Review of Systems Review of Systems: All systems reviewed & are unremarkable except as noted in HPI and below Exam Narrative: Exam Narrative: Patient appeared chronically ill older than his age Const: General: no acute distress and uncomfortable HENMT: General nose exam: Normal nares present Mouth: Yes moist mucous membranes Eyes: General: appearance normal, both eyes and all related structures Sclera: sclerae normal Neck: Neck: supple Resp: Other: Bilateral poor air entry with rhonchi Cardio: Rate: regular rate Rhythm: regular rhythm GI: Auscultation: normal bowel sounds Skin: General skin exam: normal color Neuro: Speech: normal speech Extrem: General: normal to inspection Psych: Affect: Anxious affect present Objective Data Vital Signs Vital Signs: Vital Signs - 24 hr 07/03/19 17:09 07/03/19 18:00 07/03/19 20:00 Temperature 97.0 F L 97.3 F L Pulse Rate 65 62 66 Respiratory Rate 22 H 20 Blood Pressure 133/66 134/69 Pulse Oximetry 95 93 04/
[2019-07-04 19:50] LABS: Glucose Point of Care 75 (65-105)
[2019-07-04 20:47] LABS: Glucose Point of Care 147 (65-105)
--- NOTE | 2019-07-04 21:20 | PCRCNOTE ---
DUE TO INABILITY TO OBTAIN SPO2 WITH PLETH, DR MARCANO CALLED AND ABG DRAWN.
[2019-07-04 21:22] LABS: Base Excess ABG 1.6 mEq/l (+/-2.0); Device NON-REBREATHER MASK; Fractional Inspired Oxygen 100 %; HCO3 ABG 24.5 mEq/l (22.0-26.0); Modified Allen's Test Pass; Oxygen Content ABG 14.9 %vol (16.0-22.0); Oxygen Saturation ABG 98.9 % (95.0-100.0); Oxyhemoglobin 97.4 % THb (90.0-100.0); PCO2 ABG 32.4 mmHg (35.0-45.0); PO2 ABG 136.6 mmHg (80.0-100.0); PO2 FiO2 Ratio Arterial Blood 1.37 %; Site Drawn RIGHT BRACHIAL; Total Hemoglobin 10.7 g/dL (12.0-18.0); pH ABG 7.496 (7.350-7.450)
[2019-07-05] VITALS (17 sets, daily range): BP systolic 134–145; BP diastolic 69–82; PULSE 41–80; RESP 18–24; TEMP 36.8–37.4; O2SAT 10–100
[2019-07-05] MEDS: HEPARIN SODIUM 5,000 UNITS/ML VIAL 5000 UNITS SUB-Q ×3 (06:15→21:03)
--- NOTE | 2019-07-05 06:28 | PC.NURSE ---
I contacted Dr Anne and reviewed patient status including 02 requirements of 10 liters as well as yesterday am labwork. New orders noted.
--- NOTE | 2019-07-05 07:49 | PC.NURSE ---
Went in to check pt at 2014 on 07/04/19. Pt pulse ox was not reading on the monitor up front at the nurses station. Vital signs were obtained and pt was found to have an o2 of 84% on RA. Respiratory therapist was also in the room and placed pt on 3L. Pt was still satting at 86%. Respiratory therapist titrated pt up to 5L on NC. Pt was satting 88% after the 5L. He was then placed on a non-rebreather mask at 7L with o2 sats at only 90%. Pt was then placed on High flow oxygen at 10L with sats of 98%-100%. Roseline Tyler was contacted at 2029 and gave orders for ABG labs and the high flow oxygen.
--- NOTE | 2019-07-05 07:56 | PC.NURSE ---
I contacted Dr Baltazar and notified that current 02 sats are 95-99% on 10L/NC. Reviewed labs from yesterday and Dr Anne's orders for repeat labs this morning. Advised patient comfortable without c/o SOB or labored respirations noted. He will see patient this am - aware that lab results are pending. Continue to monitor closely.
--- NOTE | 2019-07-05 08:05 | PC.NURSE ---
pt resting comfortably throughout the night. Breaths are non-labored and pt appears relaxed. pt remains on high flow o2 at 10L with sat of 98%-100%. No changes since speaking with Roseline Tyler last PM.
[2019-07-05 08:17] LABS: Glucose Point of Care 106 (65-105)
--- NOTE | 2019-07-05 08:24 | PC.NURSE ---
Dr Baltazar here to see patient - cxr ordered.
[2019-07-05 08:32] LABS: Hematocrit 33.1 % (42.0-52.0); Hemoglobin 10.4 g/dL (14.0-18.0); Immature Granulocyte Absolute 0.02 K/mm3 (0.00-0.031); Immature Granulocyte Percent A 0.4 % (0-0.5); Lymphocytes Absolute Auto 0.59 K/mm3 (0.9-3.2); Lymphocytes Percent Auto 11.6 % (18.3-44.2); Mean Corpuscular HGB Conc 31.4 g/dl (32-36); Mean Corpuscular Hemoglobin 30.5 pg (26-34); Mean Corpuscular Volume 97.1 fl (80-100); Mean Platelet Volume 9.9 fl (7.4-10.4); Monocytes Absolute Auto 0.2 K/mm3 (0.1-0.6); Monocytes Percent Auto 3.9 % (2.6-8.5); Neutrophils Absolute Auto 4.3 K/mm3 (1.3-6.7); Neutrophils Percent Auto 84.1 % (45.5-73.1); Nucleated Red Blood Cells Absolute Auto 0.1 K/mm3 (0.0-0.012); Nucleated Red Blood Cells Perc 2.8 % (0.0-0.2); Platelet Count Result 193 k/mm3 (150-375); Red Blood Count 3.41 M/mm3 (4.6-6.20); White Blood Count 5.1 K/mm3 (4.5-10.0)
[2019-07-05 08:33] LABS: Procalcitonin 4.27 ng/mL (<0.10)
[2019-07-05 08:51] LABS: Blood Urea Nitrogen 49 mg/dL (9-20); Calcium 8.1 mg/dL (8.4-10.2); Carbon Dioxide 26 mmol/L (22-30); Chloride 95 mmol/L (98-107); Estimated CRCL calculation 10 ml/min; Estimated Glomerular Filt Rate 12; Glucose 92 mg/dL (75-110); Potassium 4.5 mmol/L (3.4-5.0); Sodium 134 mmol/L (137-145)
[2019-07-05] MEDS: ALBUTEROL SULFATE (*SP) AEROSOL 1 PUFF 2 PUFF INHALATION ×4 (08:58→20:29)
[2019-07-05] MEDS: TIMOLOL MALEATE 0.5% OP SOLN 5 ML BTL 1 DROP EACH EYE ×2 (09:19→19:59)
[2019-07-05] MEDS: BRIMONIDINE TARTRATE 0.2% OP SOLN 5 ML BTL 1 DROP EACH EYE ×2 (09:19→19:58)
[2019-07-05] MEDS: DORZOLAMIDE HCL 2% OPHTH DROPS 1 DROP EACH EYE ×2 (09:20→19:59)
[2019-07-05] MEDS: DOXYCYCLINE HYCLATE 100 MG TABLET PO ×2 (09:20→19:59)
[2019-07-05] MEDS: SENNA/DOCUSATE SODIUM TABLET 1 TAB PO (09:20)
[2019-07-05] MEDS: polyethylene glycoL 3350 17 GM POWD.PACK PO (09:20)
[2019-07-05] MEDS: SEVELAMER CARBONATE 800 MG TABLET PO ×3 (09:20→17:15)
[2019-07-05 12:35] LABS: Glucose Point of Care 100 (65-105)
--- NOTE | 2019-07-05 14:53 | PM.IMPN ---
Progress Note: A&P Assessment and Plan (1) Community acquired pneumonia: Code(s): J18.9 - Pneumonia, unspecified organism Status: Acute Assessment and Plan: Community-acquired pneumonia. He has been cultured and placed on ceftriaxone and doxycycline. He had 1 dose of azithromycin in ER. He does not urinate so we cannot get urinary antigens. There has been potential exposure to COVID so swab has been obtained and inflammatory markers ordered. Date of visit 07/04. 63-year-old AA hypertensive male on chronic hemodialysis admitted with fever some shortness of breath and cough over last week. Chest x-ray some bilateral infiltrates but no hypoxia. Patient is covered with broad-spectrum antibiotics, cultured awaiting results of further, Patient is COVID-19, on 07/03 patient was clinically and he was sating 95% at and was transferred to [facility] floor for IMU, during the patient was requiring high concentration of Oxygen into 10L to keep he saturation above 90%, this morning he is clinically stable he is on high flow oxygen, he has cough but denies any shortness of breath and able to speak in short of breath, x-ray done this morning showed improvement in pneumonia and later patient was weaned off to 2 L. plan is to monitor and repeat x-ray tomorrow and and wean patient off oxygen. (2) Elevated troponin: Code(s): R79.89 - Other specified abnormal findings of blood chemistry Status: Acute Assessment and Plan: Patient was hospitalized in March 09 with chest pain and slightly elevated troponin. At that time troponin was thought to be secondary to renal failure. Troponin now slightly higher than before but flat and probably secondary to infectious process. EKG is unchanged and echo last visit showed normal ejection fraction with no wall motion abnormalities. Did have LVH with diastolic grade 1 dysfunction (3) Essential (primary) hypertension: Code(s): I10 - Essential (primary) hypertension Status: Acute Assessment and Plan: Pressure presently low and had dialysis yesterday so gave a fluid bolus initiallt and held amlodipine and labetalol i (4) ESRD (end stage renal disease) on dialysis: Code(s): N18.6 - End stage renal disease; Z99.2 - Dependence on renal dialysis Status: Acute Assessment and Plan: Dialysis Wednesday and contacted Nephrology for continued treatment (5) Decubitus ulcer of sacral region, stage 1: Code(s): L89.151 - Pressure ulcer of sacral region, stage 1 Status: Acute Assessment and Plan: Wound care to see again (6) DVT prophylaxis: Code(s): Z29.9 - Encounter for prophylactic measures, unspecified Status: Acute Assessment and Plan: Will be subcu heparin with his renal failure Subjective Date/time seen: 07/05/19 14:53 Interval history: Date of visit 07/04. 63-year-old AA hypertensive male on chronic hemodialysis admitted with fever some shortness of breath and cough over last week. Chest x-ray some bilateral infiltrates but no hypoxia. Patient is covered with broad-spectrum antibiotics, cultured awaiting results of further, Patient is COVID-19, on 07/03 patient was clinically and he was sating 95% at and was transferred to [facility] floor for IMU, during the patient was requiring high concentration of Oxygen into 10L to keep he saturation above 90%, this morning he is clinically stable he is on high flow oxygen, he has cough but denies any shortness of breath and able to speak in short of breath, x-ray done this morning showed improvement in pneumonia and later patient was weand off to 2 L. Review of Systems Review of Systems: All systems reviewed & are unremarkable except as noted in HPI and below Exam Narrative: Exam Narrative: Patient appeared chronically ill older than his age, he is clinically Const: General: no acute distress and uncomfortable HENMT: General nose exam: Normal nare
--- NOTE | 2019-07-05 17:20 | PM.PNNEP ---
Progress Note: A&P Assessment and Plan (1) End stage renal disease: Code(s): N18.6 - End stage renal disease Status: Acute Assessment and Plan: HD tomorrow and continue T/T/S schedule while hospitalized continue efforts to optimize electrolytes, volume status, and clearance as tolerated (2) Community acquired pneumonia: Code(s): J18.9 - Pneumonia, unspecified organism Status: Acute Assessment and Plan: as evidenced by admission CXR follow cultures follow respiratory status (3) Essential (primary) hypertension: Code(s): I10 - Essential (primary) hypertension Status: Acute Assessment and Plan: reasonable control at this time follow trend of hemodynamics (4) Exposure to COVID-19 virus: Code(s): Z20.828 - Contact with and (suspected) exposure to other viral communicable diseases Status: Acute Assessment and Plan: COVID-19 positive remains on isolation Will continue to follow. Subjective Date/time seen: 07/05/19 17:20 Tolerated dialysis yesterday without any acute issues or problems; breathing seems to be better if no improved at this time; requiring less supplemental oxygen; no apparent distress. Exam Narrative: Exam Narrative: General: WD/WN AA malel in NAD Heart: normal S1 and S2; no rub Lungs: left basilar crackles noted Abdomen: soft, nontender, nondistended, positive bowel sounds Extremities: no cyanosis or clubbing; no edema Skin: warm and intact Objective Data Vital Signs Vital Signs: Vital Signs Temp Pulse Resp BP Pulse Ox 07/05/19 16:00 77 07/05/19 14:49 77 18 94 07/05/19 14:00 36.8 C 71 20 134/69 97 07/05/19 12:01 69 18 99 07/05/19 12:00 70 07/05/19 10:00 36.8 C 74 18 134/80 100 07/05/19 09:45 77 21 H 97 07/05/19 09:12 75 20 10 L 07/05/19 08:00 73 07/05/19 06:00 37.1 C 72 22 H 134/75 100 07/05/19 04:00 74 07/05/19 02:00 37.4 C 77 24 H 138/76 98 07/05/19 00:00 75 07/04/19 22:00 37.5 C 75 26 H 133/68 93 07/04/19 21:02 81 28 H 84 L 07/04/19 20:32 84 26 H 07/04/19 20:00 83 07/04/19 18:00 37.2 C 88 24 H 128/69 99 Intake/Output Intake/Output: Intake & Output 07/02/19 07/03/19 07/04/19 07/05/19 23:59 23:59 23:59 23:59 Intake Total 1520 266 122 5183 Output Total 0 2000 Balance 1520 450 -1650 1080 Meds/Results Medications: Active Medications Generic Name Dose Route Start Last Admin Trade Name Freq PRN Reason Stop Dose Admin Acetaminophen 650 mg 07/02/19 11:08 Tylenol Tablet PO Q6H PRN Mild Pain (1-3) or Fever Hydrocodone Bitart/Acetaminophen 1 tab 07/02/19 10:05 07/03/19 20:29 Holladay 10-325 Mg PO 1 tab Q6-8H PRN Administration PAIN 4-6 Albuterol 2 puff 07/02/19 16:00 07/05/19 16:54 Proventil Hfa INHALATION 2 puff QIDRT JENN Administration Baclofen 10 mg 07/02/19 10:05 07/03/19 09:24 Lioresal Po PO 10 mg TID PRN Administration MUSCLE SPASM/PAIN 1-3 Brimonidine Tartrate 1 drop 07/02/19 10:05 07/05/19 09:19 Alphagan 0.2% Op Soln EACH EYE 1 drop Q12HR JENN Administration Dextrose 12.5 gm 07/03/19 11:48 07/04/19 15:10 Dextrose 50% Syringe IV PUSH 12.5 gm PRN PRN Administration Hypoglycemia Protocol Dorzolamide HCl 1 drop 07/02/19 10:05 07/05/19 09:20 Trusopt EACH EYE 1 drop Q12HR JENN Administration Doxycycline Hyclate 100 mg 07/02/19 09:00 07/05/19 09:20 Vibramycin Tab PO 100 mg Q12HR JENN Administration Glucagon 1 mg 07/03/19 11:48 Glucagon For Inj IM PRN PRN Hypoglycemia Protocol Glucose 15 gm 07/03/19 11:48 07/03/19 20:32 Glutose 15 PO 15 gm PRN PRN Administration Hypoglycemia Protocol Heparin Sodium (Porcine) 5,000 units 07/02/19 14:00 07/05/19 14:04 Heparin Sodium SUB-Q 5,000 units Q8HR JENN Administration C
[2019-07-05 17:25] LABS: Glucose Point of Care 94 (65-105)
[2019-07-05 20:58] LABS: Glucose Point of Care 79 (65-105)
[2019-07-06] VITALS: PULSE 86
[2019-07-06 01:00] VITALS: O2SAT 98
[2019-07-06 02:00] VITALS: BP 122/67; PULSE 74; RESP 20; TEMP 36.8; O2SAT 95
[2019-07-06 04:00] VITALS: PULSE 78
[2019-07-06] MEDS: HEPARIN SODIUM 5,000 UNITS/ML VIAL 5000 UNITS SUB-Q (05:40)
[2019-07-06 06:00] VITALS: BP 127/73; PULSE 80; RESP 20; TEMP 37.6; O2SAT 97
--- NOTE | 2019-07-06 08:22 | PM.DDS ---
Discharge Sum: Prov Provider Primary care physician: UNKNOWN,DOCTOR Admitting provider: David Anne MD Consults: 07/02/19 Consult to Physician Routine Comment: Consulting Provider: Satinder Meyer pool manager/MD group to consult: Dr Meyer Reason for consultation: dialysis, Tues, thurs, sat Has provider been notified: Yes Wound/ET Consult Routine Reason for Consult:: pressure sore Discharge Sum: Summary Date and Time Date of admission: 07/04/19 13:19 Date of : 07/06/19 Time of : 08:12 Summary Details: Community-acquired pneumonia. He has been cultured and placed on ceftriaxone and doxycycline. He had 1 dose of azithromycin in ER. He does not urinate so we cannot get urinary antigens. There has been potential exposure to COVID so swab has been obtained and inflammatory markers ordered. Date of visit 07/04. 63-year-old AA hypertensive male on chronic hemodialysis admitted with fever some shortness of breath and cough over last week. Chest x-ray some bilateral infiltrates but no hypoxia. Patient is covered with broad-spectrum antibiotics, cultured awaiting results of further, Patient is COVID-19, on 07/03 patient was clinically and he was sating 95% at [facility] and was transferred to [facility] floor for IMU, during the patient was requiring high concentration of Oxygen into 10L to keep he saturation above 90%, this morning he is clinically stable he is on high flow oxygen, he has cough but denies any shortness of breath and able to speak in short of breath, x-ray done this morning showed improvement in pneumonia and later patient was weaned off to 2 L. Patient with COVID-19 was doing well 30 min prior he was communicating with his nurse and was later found . 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
[2019-07-06 09:55] VITALS: PULSE 34; RESP 0
[2019-07-06 09:55] LABS: Glucose Point of Care 57 (65-105)
== END 2019-07-06 08:12 | disposition expired | DRG 137 ==
LOC: ANHED 05:48 → ANHIMU 06:40 → ANH3MEDSUR 07-07 12:37 → ANHIMU 07-07 12:37
PROVIDERS: Internal Medicine; Nurse Practitioner; Admitting Provider Family Medicine; Emergency Provider Emergency Medicine; Visit Provider Family Medicine
DX: U07.1 COVID-19 (principal); J12.89 Other viral pneumonia; Z99.2 Dependence on renal dialysis; R09.02 Hypoxemia; Z99.81 Dependence on supplemental oxygen; L89.151 Pressure ulcer of sacral region, stage 1; H40.9 Unspecified glaucoma; K64.9 Unspecified hemorrhoids; N25.0 Renal osteodystrophy; H26.9 Unspecified cataract; F17.210 Nicotine dependence, cigarettes, uncomplicated; N18.6 End stage renal disease; I12.0 Hypertensive chronic kidney disease with stage 5 chronic kidney disease or end stage renal disease
CPT/HCPCS: 36415; 36600; 71045; 80048; 80053; 82375; 82728; 82805; 83050; 83605; 83615; 83735; 84145; 84484; 85025; 85610; 85730; 86140; 87040; 87635; 87804; 93005; 94640; 96361; 96365; 96367; 96372; 96374; 96375; 96376; 99285; A9270; C9803; G0257; G0378; G0379; J0456; J0696; J1644; J7030; J7040; Q4081; U0003